=== PATIENT | male | born 1960 | race African-American/Black ===

== ENCOUNTER 2018-02-02 05:16 | Inpatient (IN) ==
[2018-02-01 13:17] LABS: Basophils % 0.4 % (0.0-0.8); Eosinophils # 0.6 10*3/uL (0.0-0.87); Eosinophils % 6.4 % (0.00-10.9); Hematocrit 40.1 VOL% (42.0-52.0); Hemoglobin 12.8 GM/DL (14.0-18.0); Immature Granulocytes % 0.3 %; Immature Granulocytes Absolute 0.03 #; Lymphocytes # 3.4 10*3/uL (1.4-4.0); Lymphocytes % 37.5 % (21.2-54.2); Mean Corpuscular HGB Conc 31.9 GM/DL (32-36); Mean Corpuscular Hemoglobin 23 PG (27-34); Mean Corpuscular Volume 72.8 FL (87-102); Mean Platelet Volume 9.9 FL (9.6-12.0); Monocytes # 0.7 10*3/uL (0.11-0.8); Monocytes % 7.6 % (1.7-12.7); Neutrophils # 4.3 10*3/uL (1.4-7.4); Neutrophils % 47.8 % (38.7-73.9); Platelet Count 198 T/CUMM (130-400); Red Blood Count 5.51 MC/CUMM (3.8-5.5); Red Cell Distribution Width 16.6 % (9.3-17.3); White Blood Count 9.1 T/CUMM (4-12)
[2018-02-01 13:31] LABS: PT Patient Result 10.5 SECS; Partial Thromboplastin Time 27.3 SECS (0-40)
[2018-02-01 13:35] LABS: Apearance,Urine CLEAR (Clear); Bilirubin,Urine Negative (Negative); Blood, Urine Small mg/dL (Negative); Glucose,Urine (UA) Negative (Negative); Ketones,Urine Negative (Negative); Mucus,Urine Occasional /LPF (Occasional); Nitrite,Urine Negative (Negative); Protein,Urine Negative; RBC,Urine 2 /HPF (0-4); Squamous Epithelial Cell,Urine Occasional /HPF (0-10); Urine Color Straw (Yellow); Urine Specific Gravity 1.009 (1.001-1.035); Urine Urobilinogen < 2.0 EU/DL (0.2-1.0); WBC,Urine 5 /HPF (0-6)
[2018-02-01 13:45] LABS: Calcium 8.5 MG/DL (8.5-10.1); Osmolality,Calculated 282.1 MOS/KG (273-304); Potassium 3.7 MMOL/L (3.5-5.1)
[~2018-02-02 05:16] MED LIST: SODIUM CHLORIDE 0.9% 1,000 ML IV PRN
[2018-02-02] MEDS ORDERED: PAPAVERINE 60 MG/2 ML VIAL ONE (05:20)
[2018-02-02] MEDS ORDERED: TISSUE ADHESIVE 1 EACH APPLICATOR TOP ONE (05:20)
[2018-02-02] MEDS ORDERED: VANCOMYCIN 1,000 MG VIAL ONE ×2 (05:20→08:31)
[2018-02-02] MEDS ORDERED: SUFentanil 250 MCG/5 ML AMP ONE ×2 (05:58→12:38)
[2018-02-02] MEDS ORDERED: MIDAZOLAM 10 MG/2 ML VIAL ONE ×3 (05:59→12:38)
[2018-02-02] MEDS ORDERED: CEFUROXIME INJ 1,500 MG in SYRINGE 1 EACH IV ONE (06:30)
[2018-02-02] MEDS ORDERED: DIAZEPAM 5 MG TABLET PO ONE (06:30)
[2018-02-02] MEDS ORDERED: PANTOPRAZOLE 40 MG TABLET PO ONE ×2 (06:30→06:37)
[2018-02-02] MEDS ORDERED: DIAZEPAM 5 MG TABLET ONE (06:37)
[2018-02-02] MEDS ORDERED: CEFUROXIME 1,500 MG VIAL ONE (06:38)
[2018-02-02 07:46] LABS: ABG Base Excess -3.2 MMOL/L (-2.5-2.5); ABG HCO3 21.8 MMOL/L (20-26); ABG Oxygen Saturation 99.7 % (95-100); ABG PCO2 40.7 MM HG (35-48); ABG PH 7.346 (7.35-7.45); ABG TCO2 19.7 MMOL/L (23-27); Glucose Heart Surgery 107 MG/DL (74-106); Hematocrit Heart Surgery 38.1 PERCENT (42-52); Hemoglobin Heart Surgery 12.4 G/DL (14.0-18.0); Ionized Calcium Arterial 1.18 MMOL/L (1.21-1.46); PCO2 Patient Temp Arterial 40.7 MMHG; PH Patient Temp Arterial 7.346; Patient Temperature 37 CELCIUS; Potassium Heart/CVR 3.8 MMOL/L (3.5-5.1); Sodium Heart/CVR 142 MMOL/L (135-145)
[2018-02-02 08:15] LABS: Apearance,Urine CLEAR (Clear); Bacteria,Urine Occasional /HPF (Few); Bilirubin,Urine Negative (Negative); Blood, Urine Small mg/dL (Negative); Glucose,Urine (UA) Negative (Negative); Ketones,Urine Negative (Negative); Mucus,Urine Occasional /LPF (Occasional); Nitrite,Urine Negative (Negative); Protein,Urine Negative; RBC,Urine 1 /HPF (0-4); Squamous Epithelial Cell,Urine Occasional /HPF (0-10); Urine Color Straw (Yellow); Urine Specific Gravity 1.009 (1.001-1.035); Urine Urobilinogen < 2.0 EU/DL (0.2-1.0); WBC,Urine <1 /HPF (0-6)
[2018-02-02] MEDS ORDERED: ALBUMIN 5% 12.5 GM/250 ML VIAL IV ONE (08:46)
[2018-02-02] MEDS ORDERED: SODIUM BICARBONATE 50 MEQ/50 ML SYRINGE IV ONE ×2 (08:46→10:15)
[2018-02-02] MEDS ORDERED: EPINEPHrine 1 MG/10 ML SYRINGE ONE (08:46)
[2018-02-02] MEDS ORDERED: CALCIUM CHLORIDE 1,000 MG/10 ML SYRINGE IV ONE (08:46)
[2018-02-02] MEDS ORDERED: ATROPINE 1 MG/10 ML SYRINGE ONE (08:47)
[2018-02-02 09:12] LABS: Hemoglobin Heart Surgery 9.6 G/DL (14.0-18.0); PCO2 Patient Temp Venous 43.7 MM HG; PH Patient Temp Venous 7.362; PO2 Patient Temp Venous 54.9 MM HG; VBG Base Excess -1.2 MEQ/L (0-4); VBG HCO3 24.2 MEQ/L (24-28); VBG Oxygen Saturation 84.4 %; VBG PCO2 43.7 MMHG (41-51); VBG PH 7.362; VBG PO2 54.9 MMHG (17-40)
[2018-02-02 09:13] LABS: Potassium Heart/CVR 7.1 MMOL/L (3.5-5.1)
[2018-02-02] MEDS ORDERED: HEPARIN/NACL 0.9% 2 UNITS/ML 500 ML IV ONE (09:43)
[2018-02-02 09:44] LABS: Hematocrit Heart Surgery 31.7 PERCENT (42-52); Hemoglobin Heart Surgery 10.3 G/DL (14.0-18.0); PCO2 Patient Temp Venous 41.3 MM HG; PH Patient Temp Venous 7.36; PO2 Patient Temp Venous 45.6 MM HG; VBG HCO3 22.4 MEQ/L (24-28); VBG Oxygen Saturation 79.7 %; VBG PCO2 41.3 MMHG (41-51); VBG PH 7.36; VBG PO2 45.6 MMHG (17-40)
[2018-02-02 09:45] LABS: Potassium Heart/CVR 6.5 MMOL/L (3.5-5.1)
[2018-02-02 10:10] LABS: ABG Base Excess -3.3 MMOL/L (-2.5-2.5); ABG HCO3 21.7 MMOL/L (20-26); ABG Oxygen Saturation 99.2 % (95-100); ABG PCO2 38.4 MM HG (35-48); ABG PH 7.361 (7.35-7.45); ABG TCO2 19.6 MMOL/L (23-27); Glucose Heart Surgery 192 MG/DL (74-106); Hematocrit Heart Surgery 33.6 PERCENT (42-52); Hemoglobin Heart Surgery 10.9 G/DL (14.0-18.0); Ionized Calcium Arterial 1.24 MMOL/L (1.21-1.46); PCO2 Patient Temp Arterial 38.4 MMHG; PH Patient Temp Arterial 7.361; Patient Temperature 37 CELCIUS; Potassium Heart/CVR 5.1 MMOL/L (3.5-5.1); Sodium Heart/CVR 138 MMOL/L (135-145)
[2018-02-02] MEDS ORDERED: DEXTROSE 5% KCL 20 MEQ 20 MEQ/1,000 ML BAG IV ONE (10:15)
[2018-02-02] MEDS ORDERED: MAGNESIUM SULFATE 10 GM/20 ML VIAL IV ONE (10:15)
[2018-02-02] MEDS ORDERED: HEPARIN 10,000 UNIT/10 ML VIAL ONE (10:15)
[2018-02-02] MEDS ORDERED: PROTAMINE SULFATE 250 MG/25 ML VIAL IV ONE (10:15)
[2018-02-02] MEDS ORDERED: ALBUMIN 25% 25 GM/100 ML VIAL IV ONE (10:15)
[2018-02-02] MEDS ORDERED: methylPREDNISolone SOD SUC 1,000 MG/8 ML VIAL ONE (10:15)
[2018-02-02] MEDS ORDERED: MANNITOL 12.5 GM/50 ML VIAL IV ONE (10:16)
[2018-02-02] MEDS ORDERED: FUROSEMIDE 20 MG/2 ML VIAL ONE (10:16)
[2018-02-02] MEDS ORDERED: MAGNESIUM SULF RIDER 2 GM in PREMIX 1 EACH IV PRN (11:10)
[2018-02-02] MEDS ORDERED: MAGNESIUM SULF RIDER 4 GM in PREMIX 1 EACH IV PRN (11:10)
[2018-02-02] MEDS ORDERED: SODIUM CHLORIDE 0.9% 250 ML IV PRN (11:10)
[2018-02-02] MEDS ORDERED: ONDANSETRON 4 MG/2 ML VIAL IV PRN (11:10)
[2018-02-02] MEDS ORDERED: ACETAMINOPHEN 650 MG SUPP RECTAL PRN (11:10)
[2018-02-02] MEDS ORDERED: CHLORHEXIDINE 4% SOLN 118 ML BOTTLE TOP PRN (11:10)
[2018-02-02] MEDS ORDERED: INSULIN REGULAR 100 UNIT/ML IV PRN (11:10)
[2018-02-02] MEDS ORDERED: CALCIUM CHLORIDE 1,000 MG/10 ML SYRINGE IV PRN (11:10)
[2018-02-02] MEDS ORDERED: DEXTROSE 50% 25 GM/50 ML VIAL IV PRN ×2 (11:10)
[2018-02-02] MEDS ORDERED: MIDAZOLAM 2 MG/2 ML VIAL IV PRN (11:10)
[2018-02-02] MEDS: SODIUM CHLORIDE 0.45% 1,000 ML IV SCH ×2 (11:38)
[2018-02-02 11:40] LABS: ABG Base Excess -2.2 MMOL/L (-2.5-2.5); ABG HCO3 22.6 MMOL/L (20-26); ABG PCO2 41.4 MM HG (35-48); ABG PH 7.357 (7.35-7.45); ABG TCO2 20.6 MMOL/L (23-27); Basophils # 0.1 10*3/uL (0.0-0.2); Basophils % 0.4 % (0.0-0.8); Eosinophils # 0.2 10*3/uL (0.0-0.87); Eosinophils % 1.7 % (0.00-10.9); Glucose Heart Surgery 154 MG/DL (74-106); Hematocrit 38.8 VOL% (42.0-52.0); Hematocrit Heart Surgery 37.9 PERCENT (42-52); Hemoglobin 12.4 GM/DL (14.0-18.0); Hemoglobin Heart Surgery 12.3 G/DL (14.0-18.0); Immature Granulocytes % 0.4 %; Immature Granulocytes Absolute 0.05 #; Lymphocytes # 1.4 10*3/uL (1.4-4.0); Lymphocytes % 11.3 % (21.2-54.2); Mean Corpuscular Hemoglobin 23 PG (27-34); Mean Corpuscular Volume 73.3 FL (87-102); Mean Platelet Volume 10.2 FL (9.6-12.0); Monocytes # 0.6 10*3/uL (0.11-0.8); Monocytes % 4.4 % (1.7-12.7); Neutrophils # 10.3 10*3/uL (1.4-7.4); Neutrophils % 81.8 % (38.7-73.9); Platelet Count 186 T/CUMM (130-400); Potassium Heart/CVR 3.9 MMOL/L (3.5-5.1); Red Blood Count 5.29 MC/CUMM (3.8-5.5); Red Cell Distribution Width 16.9 % (9.3-17.3); White Blood Count 12.6 T/CUMM (4-12)
[2018-02-02 11:50] LABS: PT Patient Result 10.9 SECS; Partial Thromboplastin Time 28.4 SECS (0-40)
[2018-02-02 11:56] LABS: Blood Urea Nitrogen 9 MG/DL (7-18); Calcium 8.5 MG/DL (8.5-10.1); Glucose 147 MG/DL (74-106); Osmolality,Calculated 289.7 MOS/KG (273-304); Potassium 4.1 MMOL/L (3.5-5.1); Sodium 145 MMOL/L (136-145)
[2018-02-02 12:05] LABS: Lactic Acid 2.2 MMOL/L (0.4-2.0)
[2018-02-02] MEDS ORDERED: SEVOFLURANE 1 UNIT/15 MINUTE INH ONE (12:37)
[2018-02-02] MEDS ORDERED: ETOMIDATE 40 MG/20 ML VIAL IV ONE (12:38)
[2018-02-02] MEDS ORDERED: SODIUM CHLORIDE 0.9% 500 ML IV ONE (12:38)
[2018-02-02] MEDS ORDERED: LACTATED RINGERS 2,000 ML IV ONE (12:38)
[2018-02-02] MEDS ORDERED: VECURONIUM 10 MG VIAL IV ONE (12:38)
[2018-02-02] MEDS ORDERED: SODIUM CHLORIDE 0.9% 2,000 ML IV ONE (12:38)
[2018-02-02] MEDS ORDERED: AMINOCAPROIC ACID 5,000 MG/20 ML VIAL IV ONE (12:38)
[2018-02-02] MEDS ORDERED: CALCIUM CHLORIDE 1,000 MG/10 ML VIAL IV ONE (12:39)
[2018-02-02] MEDS ORDERED: MINERAL OIL/PETROLATUM OPH OINT 3.5 GM TUBE ONE (12:39)
[2018-02-02] MEDS: INSULIN REGULAR DRIP 100 ML IV SCH ×2 (12:46→19:31)
[2018-02-02] MEDS: POTASSIUM CHLORIDE RIDER 20 MEQ in PREMIX 1 EACH IV PRN ×2 (12:47→15:47)
[2018-02-02] MEDS: LACTATED RINGERS 1,000 ML IV SCH (12:49)
[2018-02-02 15:03] LABS: ABG Base Excess -3.3 MMOL/L (-2.5-2.5); ABG HCO3 21.7 MMOL/L (20-26); ABG Oxygen Saturation 98.8 % (95-100); ABG PCO2 42.4 MM HG (35-48); ABG PH 7.333 (7.35-7.45); Glucose Heart Surgery 159 MG/DL (74-106); Hematocrit Heart Surgery 37.4 PERCENT (42-52); Hemoglobin Heart Surgery 12.1 G/DL (14.0-18.0); Potassium Heart/CVR 3.7 MMOL/L (3.5-5.1)
[2018-02-02] MEDS ORDERED: INSULIN REGULAR 100 UNIT/ML SUBCUT ONE (15:15)
[2018-02-02] MEDS ORDERED: ASPIRIN 325 MG TABLET PER TUBE ONE (15:17)
[2018-02-02] MEDS ORDERED: LACTATED RINGERS 1,000 ML IV PRN ×2 (15:51→15:59)
[2018-02-02 16:48] LABS: ABG Base Excess -2.7 MMOL/L (-2.5-2.5); ABG HCO3 22.2 MMOL/L (20-26); ABG Oxygen Saturation 99.1 % (95-100); ABG PCO2 38.4 MM HG (35-48); ABG TCO2 19.5 MMOL/L (23-27); Glucose Heart Surgery 165 MG/DL (74-106); Hematocrit Heart Surgery 39.4 PERCENT (42-52); Hemoglobin Heart Surgery 12.8 G/DL (14.0-18.0); Potassium Heart/CVR 4.2 MMOL/L (3.5-5.1)
[2018-02-02] MEDS: CEFUROXIME INJ 1,500 MG in SYRINGE 1 EACH IV SCH (19:33)
[2018-02-02] MEDS: ALBUMIN 5% 12.5 GM in PREMIX 1 EACH IV PRN ×2 (20:10→20:44)
[2018-02-02] MEDS ORDERED: METOPROLOL TARTRATE 5 MG/5 ML VIAL IV ONE (22:00)
[2018-02-02] MEDS ORDERED: NITROGLYCERIN DRIP 50 MG/250 ML BOTTLE IV PRN (22:49)
[2018-02-02] MEDS: CHLORHEXIDINE 0.12% ORAL RINSE 60 ML BOTTLE SWISH/SPIT SCH (23:00)
[2018-02-03] MEDS: SODIUM CHLORIDE 0.45% 1,000 ML IV SCH ×3 (00:48→11:34)
[2018-02-03] MEDS: MORPHINE 4 MG/1 ML VIAL IV PRN ×3 (02:54→20:58)
[2018-02-03 04:16] LABS: Basophils % 0.1 % (0.0-0.8); Hematocrit 35.4 VOL% (42.0-52.0); Hemoglobin 11.6 GM/DL (14.0-18.0); Immature Granulocytes % 0.6 %; Immature Granulocytes Absolute 0.14 #; Lymphocytes # 1.3 10*3/uL (1.4-4.0); Lymphocytes % 5.7 % (21.2-54.2); Mean Corpuscular HGB Conc 32.8 GM/DL (32-36); Mean Corpuscular Hemoglobin 23 PG (27-34); Mean Corpuscular Volume 71.5 FL (87-102); Mean Platelet Volume 10.7 FL (9.6-12.0); Monocytes # 1.4 10*3/uL (0.11-0.8); Monocytes % 5.8 % (1.7-12.7); Neutrophils # 20.6 10*3/uL (1.4-7.4); Neutrophils % 87.8 % (38.7-73.9); Platelet Count 211 T/CUMM (130-400); Red Blood Count 4.95 MC/CUMM (3.8-5.5); Red Cell Distribution Width 16.9 % (9.3-17.3); White Blood Count 23.5 T/CUMM (4-12)
[2018-02-03 04:31] LABS: Calcium 8.7 MG/DL (8.5-10.1); Osmolality,Calculated 288.8 MOS/KG (273-304); Potassium 3.6 MMOL/L (3.5-5.1)
[2018-02-03 04:44] LABS: Band Neutrophils 5 % (0-10); Lymphocytes 3 % (20-55); Segmented Neutrophils 87 % (50-85); Total Cells Counted 100
[2018-02-03 04:45] LABS: Anisocytosis 1+; Platelet Estimate Normal; Tear Drop Cells Few
[2018-02-03] MEDS: POTASSIUM CHLORIDE RIDER 20 MEQ in PREMIX 1 EACH IV PRN (04:56)
[2018-02-03] MEDS: MORPHINE 10 MG/1 ML VIAL IV PRN ×3 (05:33→09:15)
[2018-02-03] MEDS: LACTATED RINGERS 1,000 ML IV SCH (06:09)
[2018-02-03] MEDS: POTASSIUM CHLORIDE RIDER 10 MEQ in PREMIX 1 EACH IV PRN (06:23)
[2018-02-03] MEDS: CEFUROXIME INJ 1,500 MG in SYRINGE 1 EACH IV SCH ×2 (06:24→21:53)
[2018-02-03] MEDS ORDERED: DEXTROSE 50% 25 GM/50 ML VIAL IV PRN (08:07)
[2018-02-03] MEDS ORDERED: GLUCAGON 1 MG VIAL IM PRN (08:07)
[2018-02-03] MEDS: INSULIN REGULAR 100 UNIT/ML SUBCUT SCH ×4 (09:38→21:03)
[2018-02-03] MEDS: ASPIRIN EC 325 MG TABLET PO SCH (09:41)
[2018-02-03] MEDS: PANTOPRAZOLE 40 MG VIAL IV SCH (09:41)
[2018-02-03] MEDS: FUROSEMIDE 40 MG TABLET PO SCH (09:41)
[2018-02-03] MEDS: CHLORHEXIDINE 0.12% ORAL RINSE 60 ML BOTTLE SWISH/SPIT SCH ×2 (09:42→21:03)
[2018-02-03] MEDS: CARVEDILOL 3.125 MG TABLET PO SCH ×2 (10:12→20:57)
[2018-02-03] MEDS ORDERED: INDOMETHACIN 25 MG CAPSULE PO PRN (10:55)
[2018-02-03] MEDS: ATORVASTATIN 40 MG TABLET PO SCH (20:57)
[2018-02-03] MEDS ORDERED: CEFUROXIME INJ 1,500 MG in SYRINGE 1 EACH IV SCH (22:00)
[2018-02-04] MEDS: INSULIN REGULAR 100 UNIT/ML SUBCUT SCH ×6 (00:17→20:55)
[2018-02-04 04:48] LABS: Basophils % 0.1 % (0.0-0.8); Hematocrit 36.2 VOL% (42.0-52.0); Hemoglobin 11.4 GM/DL (14.0-18.0); Immature Granulocytes % 0.9 %; Immature Granulocytes Absolute 0.22 #; Lymphocytes # 1.9 10*3/uL (1.4-4.0); Lymphocytes % 8.1 % (21.2-54.2); Mean Corpuscular HGB Conc 31.5 GM/DL (32-36); Mean Corpuscular Hemoglobin 23 PG (27-34); Mean Corpuscular Volume 73.1 FL (87-102); Mean Platelet Volume 10.8 FL (9.6-12.0); Monocytes % 8.5 % (1.7-12.7); Neutrophils # 19.3 10*3/uL (1.4-7.4); Neutrophils % 82.4 % (38.7-73.9); Platelet Count 199 T/CUMM (130-400); Red Blood Count 4.95 MC/CUMM (3.8-5.5); Red Cell Distribution Width 17.1 % (9.3-17.3); White Blood Count 23.4 T/CUMM (4-12)
[2018-02-04 05:12] LABS: Calcium 8.9 MG/DL (8.5-10.1); Osmolality,Calculated 285.3 MOS/KG (273-304); Potassium 4.1 MMOL/L (3.5-5.1)
[2018-02-04 05:35] LABS: Hypochromasia 1+; Lymphocytes 9 % (20-55); Microcytosis 1+; Ovalocytes Slight; Segmented Neutrophils 84 % (50-85); Total Cells Counted 100
[2018-02-04 05:36] LABS: Platelet Estimate Adequate; Tear Drop Cells Slight
[2018-02-04] MEDS: ASPIRIN EC 325 MG TABLET PO SCH (08:58)
[2018-02-04] MEDS: PANTOPRAZOLE 40 MG VIAL IV SCH (08:58)
[2018-02-04] MEDS: CARVEDILOL 3.125 MG TABLET PO SCH (08:58)
[2018-02-04] MEDS: FUROSEMIDE 40 MG TABLET PO SCH (08:58)
[2018-02-04] MEDS: POTASSIUM CHLORIDE RIDER 10 MEQ in PREMIX 1 EACH IV PRN ×2 (08:58→11:17)
[2018-02-04] MEDS: CHLORHEXIDINE 0.12% ORAL RINSE 60 ML BOTTLE SWISH/SPIT SCH ×2 (09:02→20:57)
[2018-02-04] MEDS ORDERED: FUROSEMIDE 40 MG/4 ML VIAL IV ONE (10:37)
[2018-02-04] MEDS ORDERED: KETOROLAC 30 MG/1 ML VIAL IV ONE (10:37)
[2018-02-04] MEDS ORDERED: BISACODYL 5 MG TABLET PO PRN (10:38)
[2018-02-04] MEDS: DOCUSATE SODIUM 100 MG CAPSULE PO SCH ×2 (11:17→20:56)
[2018-02-04] MEDS: CARVEDILOL 6.25 MG TABLET PO SCH (16:47)
[2018-02-04] MEDS: MORPHINE 4 MG/1 ML VIAL IV PRN (16:54)
[2018-02-04] MEDS: ATORVASTATIN 40 MG TABLET PO SCH (20:57)
[2018-02-05] MEDS: INSULIN REGULAR 100 UNIT/ML SUBCUT SCH ×6 (00:11→21:15)
[2018-02-05 04:41] LABS: Basophils % 0.2 % (0.0-0.8); Hematocrit 33.9 VOL% (42.0-52.0); Hemoglobin 10.8 GM/DL (14.0-18.0); Immature Granulocytes % 0.8 %; Immature Granulocytes Absolute 0.18 #; Lymphocytes # 2.7 10*3/uL (1.4-4.0); Lymphocytes % 12.5 % (21.2-54.2); Mean Corpuscular HGB Conc 31.9 GM/DL (32-36); Mean Corpuscular Hemoglobin 23 PG (27-34); Mean Corpuscular Volume 72.9 FL (87-102); Mean Platelet Volume 11.1 FL (9.6-12.0); Monocytes # 1.9 10*3/uL (0.11-0.8); Monocytes % 8.8 % (1.7-12.7); Neutrophils # 16.7 10*3/uL (1.4-7.4); Neutrophils % 77.7 % (38.7-73.9); Platelet Count 185 T/CUMM (130-400); Red Blood Count 4.65 MC/CUMM (3.8-5.5); Red Cell Distribution Width 16.7 % (9.3-17.3); White Blood Count 21.5 T/CUMM (4-12)
[2018-02-05 04:55] LABS: Calcium 8.7 MG/DL (8.5-10.1)
[2018-02-05 04:56] LABS: Osmolality,Calculated 284.3 MOS/KG (273-304); Potassium 3.5 MMOL/L (3.5-5.1)
[2018-02-05 05:13] LABS: Atypical Lymphocytes Few; Eosinophils 1 % (0-10); Hypochromasia 1+; Lymphocytes 10 % (20-55); Microcytosis 1+; Segmented Neutrophils 78 % (50-85); Target Cells Slight; Total Cells Counted 100
[2018-02-05 05:14] LABS: Platelet Estimate Adequate
[2018-02-05] MEDS: FUROSEMIDE 40 MG TABLET PO SCH (09:32)
[2018-02-05] MEDS: DOCUSATE SODIUM 100 MG CAPSULE PO SCH ×2 (09:32→21:15)
[2018-02-05] MEDS: PANTOPRAZOLE 40 MG VIAL IV SCH (09:32)
[2018-02-05] MEDS: ASPIRIN EC 325 MG TABLET PO SCH (09:32)
[2018-02-05] MEDS: CARVEDILOL 6.25 MG TABLET PO SCH ×2 (09:32→16:51)
[2018-02-05] MEDS: POTASSIUM CHLORIDE RIDER 10 MEQ in PREMIX 1 EACH IV PRN ×2 (09:33→10:39)
[2018-02-05] MEDS: CHLORHEXIDINE 0.12% ORAL RINSE 60 ML BOTTLE SWISH/SPIT SCH ×2 (09:33→21:16)
[2018-02-05] MEDS: ATORVASTATIN 40 MG TABLET PO SCH (21:15)
[2018-02-06] MEDS: INSULIN REGULAR 100 UNIT/ML SUBCUT SCH ×4 (08:27→20:34)
[2018-02-06] MEDS: CARVEDILOL 6.25 MG TABLET PO SCH ×2 (09:30→17:29)
[2018-02-06] MEDS: ASPIRIN EC 325 MG TABLET PO SCH (09:30)
[2018-02-06] MEDS: FUROSEMIDE 40 MG TABLET PO SCH (09:31)
[2018-02-06] MEDS: PANTOPRAZOLE 40 MG VIAL IV SCH (09:31)
[2018-02-06] MEDS: DOCUSATE SODIUM 100 MG CAPSULE PO SCH ×2 (09:31→20:32)
[2018-02-06] MEDS: CHLORHEXIDINE 0.12% ORAL RINSE 60 ML BOTTLE SWISH/SPIT SCH ×2 (09:57→20:34)
[2018-02-06] MEDS ORDERED: FUROSEMIDE 40 MG/4 ML VIAL IV ONE (16:41)
[2018-02-06] MEDS: ATORVASTATIN 40 MG TABLET PO SCH (20:32)
[2018-02-07 08:19] VITALS: BP 151/87
[2018-02-07] MEDS: INSULIN REGULAR 100 UNIT/ML SUBCUT SCH (08:46)
[2018-02-07] MEDS: PANTOPRAZOLE 40 MG VIAL IV SCH (08:47)
[2018-02-07] MEDS: CARVEDILOL 6.25 MG TABLET PO SCH (08:47)
[2018-02-07] MEDS: FUROSEMIDE 40 MG TABLET PO SCH (08:48)
[2018-02-07] MEDS: ASPIRIN EC 325 MG TABLET PO SCH (08:48)
[2018-02-07] MEDS: CHLORHEXIDINE 0.12% ORAL RINSE 60 ML BOTTLE SWISH/SPIT SCH (08:48)
[2018-02-07] MEDS: DOCUSATE SODIUM 100 MG CAPSULE PO SCH (08:48)
== END 2018-02-07 10:10 | disposition home health service (06) | DRG 236 ==
LOC: N.SDSINP 05:16 → N.CVR 07:41 → N.TELES 02-03 10:53
PROVIDERS: ADMIT Thoracic Surgery (Cardiothoracic Vascular Surgery); ATTEND Thoracic Surgery (Cardiothoracic Vascular Surgery)

== ENCOUNTER 2021-10-16 16:58 | Inpatient (IN) ==
[2021-10-16] MEDS ORDERED: ACETAMINOPHEN 500 MG TABLET PO STA (19:15)
[2021-10-16 19:53] LABS: Basophils % 0.4 % (0.0-0.8); Eosinophils # 0.2 10*3/uL (0.0-0.87); Eosinophils % 2.6 % (0.00-10.9); Hemoglobin 12.9 GM/DL (14.0-18.0); Immature Granulocytes % 0.4 %; Immature Granulocytes Absolute 0.03 #; Lymphocytes # 1.9 10*3/uL (1.4-4.0); Lymphocytes % 27.6 % (21.2-54.2); Mean Corpuscular HGB Conc 31.5 GM/DL (32-36); Mean Corpuscular Volume 68.2 FL (87-102); Mean Platelet Volume 9.8 FL (9.6-12.0); Monocytes # 0.6 10*3/uL (0.11-0.8); Monocytes % 8.5 % (1.7-12.7); Neutrophils % 60.5 % (38.7-73.9); Platelet Count 162 T/CUMM (130-400); Red Blood Count 6.01 MC/CUMM (3.8-5.5); Red Cell Distribution Width 16.2 % (9.3-17.3)
[2021-10-16 20:03] LABS: INR 1.1; PT Patient Result 11.9 SECS (10.5-12.0)
[2021-10-16 20:18] LABS: Albumin 3.8 G/DL (3.4-5.0); Bilirubin,Total 1.2 MG/DL (0.20-1.00); Calcium 8.9 MG/DL (8.5-10.1); Potassium 3.7 MMOL/L (3.5-5.1); Total Protein 7.4 G/DL (6.4-8.2)
[2021-10-16 20:55] LABS: Mucus,Urine Occasional /LPF (Occasional); Squamous Epithelial Cell,Urine Occasional /HPF (0-10); Urine Appearance Clear (Clear); Urine Color Yellow (Yellow); Urine Specific Gravity 1.025 (1.001-1.035); Urine pH 5.5 (4.5-8.0)
[2021-10-16 20:56] LABS: Bilirubin,Urine Negative (Negative); Blood, Urine Small mg/dL (Negative); Glucose,Urine (UA) Negative (Negative); Ketones,Urine Negative (Negative); Nitrite,Urine Negative (Negative); Protein,Urine 30 mg/dL (Negative)
[2021-10-16] MEDS ORDERED: cefTRIAXone 1,000 MG in SODIUM CHLORIDE 0.9% 100 ML IV STA (21:59)
[2021-10-16] MEDS ORDERED: DEXTROSE 10% 250 ML BAG IV PRN (22:13)
[2021-10-16] MEDS ORDERED: NICOTINE 21 MG/24 HR PATCH TRANSDERM PRN (22:13)
[2021-10-16] MEDS ORDERED: hydrALAZINE 20 MG/1 ML VIAL IV PRN (22:13)
[2021-10-16] MEDS ORDERED: DOCUSATE SODIUM 100 MG CAPSULE PO PRN (22:13)
[2021-10-16] MEDS ORDERED: ZALEPLON 5 MG CAPSULE PO PRN (22:13)
[2021-10-16] MEDS ORDERED: ACETAMINOPHEN 325 MG TABLET PO PRN (22:13)
[2021-10-16] MEDS ORDERED: diphenhydrAMINE CAP 25 MG CAPSULE PO PRN (22:13)
[2021-10-16] MEDS ORDERED: guaiFENesin/DM ER 600-30 MG TABLET PO PRN (22:13)
[2021-10-16] MEDS ORDERED: ONDANSETRON 4 MG/2 ML VIAL IV PRN (22:13)
[2021-10-16] MEDS ORDERED: GLUCAGON 1 MG VIAL IM PRN ×2 (22:13)
[2021-10-16] MEDS ORDERED: DEXTROSE 50% 25 GM/50 ML VIAL IV PRN (22:13)
[2021-10-16] MEDS ORDERED: ALBUTEROL/IPRATROPIUM 3 ML NEB RESP TX ONE (23:31)
[2021-10-17] MEDS: ALBUTEROL/IPRATROPIUM 3 ML NEB RESP TX SCH ×3 (02:10→13:33)
[2021-10-17 04:41] LABS: Basophils % 0.6 % (0.0-0.8); Eosinophils # 0.3 10*3/uL (0.0-0.87); Eosinophils % 5.2 % (0.00-10.9); Hematocrit 39.7 VOL% (42.0-52.0); Hemoglobin 12.3 GM/DL (14.0-18.0); Immature Granulocytes % 0.2 %; Immature Granulocytes Absolute 0.01 #; Lymphocytes % 31.9 % (21.2-54.2); Mean Corpuscular Volume 68.4 FL (87-102); Monocytes # 0.7 10*3/uL (0.11-0.8); Monocytes % 10.8 % (1.7-12.7); Neutrophils % 51.3 % (38.7-73.9); Platelet Count 151 T/CUMM (130-400); Red Cell Distribution Width 16.9 % (9.3-17.3); White Blood Count 6.3 T/CUMM (4-12)
[2021-10-17 04:52] LABS: Calcium 8.7 MG/DL (8.5-10.1); Osmolality,Calculated 278.7 MOS/KG (273-304); Potassium 3.3 MMOL/L (3.5-5.1)
[2021-10-17] MEDS ORDERED: NITROGLYCERIN SL 0.4 MG TABLET SL PRN (06:44)
[2021-10-17] MEDS ORDERED: carvediloL 6.25 MG TABLET PO SCH (08:00)
[2021-10-17] MEDS: INSULIN LISPRO 100 UNIT/ML SUBCUT SCH ×2 (08:17→12:49)
[2021-10-17] MEDS ORDERED: POTASSIUM CHLORIDE 20 MEQ TABLET PO ONE (08:18)
[2021-10-17] MEDS ORDERED: LOSARTAN 50 MG TABLET PO SCH (09:00)
[2021-10-17] MEDS ORDERED: HEPARIN 5,000 UNIT/1 ML VIAL SUBCUT SCH (09:00)
[2021-10-17] MEDS ORDERED: AZITHROMYCIN 250 MG TABLET PO SCH (09:00)
[2021-10-17] MEDS ORDERED: ASPIRIN EC 81 MG TABLET PO SCH (09:00)
[2021-10-17] MEDS ORDERED: PANTOPRAZOLE 40 MG TABLET PO SCH (09:00)
[2021-10-17] MEDS ORDERED: CLOPIDOGREL 75 MG TABLET PO SCH (09:00)
[2021-10-17] MEDS ORDERED: cilostazoL 100 MG TABLET PO SCH (09:00)
[2021-10-17 16:11] VITALS: BP 123/72
== END 2021-10-17 16:13 | disposition home or self-care (01) | DRG 153 ==
LOC: N.ED 16:58 → N.EDINP 22:28 → SUATTDRO 22:28 → N.EDINP 22:53 → N.TELEN 22:58
PROVIDERS: ADMIT Family Medicine; ATTEND Internal Medicine